=== PATIENT | male | born 1985 | race Caucasian/White ===

== ENCOUNTER 2020-10-02 07:18 | Emergency (ER) | payer BC ==
[~2020-10-02] VITALS: Ht 172.7 cm; Wt 81.6 kg
--- NOTE | 2020-10-02 09:35 | NUR ---
Patient discharged to home in stable condition. Written and verbal after care instructions given. Patient verbalizes understanding of instructions. Stressed follow up or return to ER for worsening s/s.PT WALKS IN STEADY GAIT.
== END 2020-10-02 09:39 | disposition home or self-care (01) ==
LOC: ER 07:18
DX: M25.561 Pain in right knee (principal)
CPT/HCPCS: A4663

== ENCOUNTER 2023-01-09 15:38 | Emergency (ER) | payer BC, MEDICAID, OTHER ==
[~2023-01-09] VITALS: Ht 172.7 cm; Wt 88.5 kg
[2023-01-09 17:17] LABS: BASOPHILS # (AUTO) 0.1 K/UL (0.0-0.2); BASOPHILS % (AUTO) 0.9 % (0.0-2.0); EOSINOPHILS # (AUTO) 0.3 K/uL (0.0-0.7); EOSINOPHILS % (AUTO) 3.5 % (0.0-7.0); HEMATOCRIT 41.5 % (36.7-47.1); HEMOGLOBIN 14.3 g/dL (12.5-16.3); LYMPHOCYTES # (AUTO) 2.4 K/uL (0.8-4.8); LYMPHOCYTES % (AUTO) 31.8 % (20.5-51.5); MEAN CORPUSCULAR HEMOGLOBIN 29.3 uug (23.8-33.4); MEAN CORPUSCULAR HGB CONC 35 g/dL (32.5-36.3); MEAN CORPUSCULAR VOLUME 84.9 fL (73.0-96.2); MONOCYTES # (AUTO) 0.8 K/uL (0.1-1.30); MONOCYTES % (AUTO) 10.1 % (0.0-11.0); NEUTROPHILS # (AUTO) 4.1 K/uL (1.8-8.9); NEUTROPHILS % (AUTO) 53.7 % (38.5-71.5); PLATELET COUNT (AUTO) 232 K/uL (152-348); RED BLOOD CELL COUNT(AUTO) 4.89 MIL/uL (4.06-5.63); RED CELL DISTRIBUTION WIDTH 13.3 % (12.1-16.2); WHITE BLOOD COUNT (AUTO) 7.6 K/uL (3.6-10.2)
[2023-01-09 17:27] LABS: *OCCULT BLOOD STOOL NEGATIVE (NEGATIVE)
[2023-01-09 17:27] LABS: CALCIUM 8.2 mg/dL (8.5-10.1); CARBON DIOXIDE 18 mmol/L (21-32); CHLORIDE 102 mmol/L (98-107); CREATININE 0.8 mg/dL (0.6-1.3); GLUCOSE 123 mg/dL (74-106); POTASSIUM 3.4 mmol/L (3.5-5.1); SODIUM SERUM 138 mmol/L (136-145); UREA NITROGEN, BLOOD 15 mg/dL (7-18)
[2023-01-09 17:29] LABS: DIFFERENTIAL COMMENT 1
[2023-01-09 17:33] LABS: ALANINE AMINOTRANSFERASE 35 U/L (16-63); ALBUMIN 3.7 g/dL (3.4-5.0); ALKALINE PHOSPHATASE 64 U/L (50-136); ASPARTATE AMINOTRANSFERASE < 5 U/L (15-37); BILIRUBIN,DIRECT < 0.1 mg/dL (0.0-0.2); BILIRUBIN,TOTAL 0.4 mg/dL (0.2-1.0); TOTAL PROTEIN, SERUM 7.1 g/dL (6.4-8.2)
[2023-01-09] MEDS ORDERED: PRED20TA PO (17:49)
[2023-01-09] MEDS ORDERED: AMOX-430 PO (17:49)
[2023-01-09 18:02] VITALS: BP 131/78; O2SAT 98
== END 2023-01-09 18:02 | disposition home or self-care (01) ==
LOC: ER 15:38
DX: K62.5 Hemorrhage of anus and rectum (principal); E87.6 Hypokalemia; K62.89 Other specified diseases of anus and rectum
CPT/HCPCS: 36415; 85025; 85730; 86850; 86900; 86901; A4663